=== PATIENT | male | born 1985 | race Caucasian/White ===

== ENCOUNTER → 2016-11-15 | Outpatient (CLI) | payer BC ==
[~2016-11-15] VITALS: Ht 174 cm; Wt 150.1 kg
[~2016-11-15] MED LIST: BYSTOLIC10 MG PO; CLARITIN 1010 MG/TAB PO; FLONASEALLERGY NS; GLUCOPHAGE1000 MG PO; NORCO 325 MG-51 TAB PO; PHENTERMINE15 MG PO; SYNTHROID0.05 MG/TA PO; ZESTORETIC 25 M1 TAB PO; ZOCOR 20MG20 MG PO; ZYRTEC 10MG10 MG PO
[2016-11-15 16:12] VITALS: BP 110/56; PULSE 90
[2016-11-15 16:45] VITALS: BP 110/56; PULSE 90
== END ==
LOC: LIGHT 10-25 14:50
DX: E88.81 Metabolic syndrome and other insulin resistance (principal); E11.9 Type 2 diabetes mellitus without complications; E66.01 Morbid (severe) obesity due to excess calories; Z68.42 Body mass index [BMI] 45.0-49.9, adult; I10 Essential (primary) hypertension

== ENCOUNTER → 2016-12-20 | Outpatient (CLI) | payer BC ==
[~2016-12-20] VITALS: Ht 174 cm; Wt 150.4 kg
[2016-12-20 15:47] VITALS: BP 132/58; PULSE 86
== END ==
LOC: LIGHT 14:19
DX: E88.81 Metabolic syndrome and other insulin resistance (principal); I10 Essential (primary) hypertension; E11.9 Type 2 diabetes mellitus without complications; E66.01 Morbid (severe) obesity due to excess calories; Z68.43 Body mass index [BMI] 50.0-59.9, adult